=== PATIENT | female | born 1970 | race Hispanic/Latino ===

== ENCOUNTER 2018-03-09 16:11 | Emergency (ER) | payer SELFPAY ==
--- NOTE | 2018-03-09 17:00 | RAD REPORT ---
EXAM DESCRIPTION: Jeremy Pa And Lat (2 Views)03/09/2018 4:53 pm CLINICAL HISTORY: Cough;Congestion COMPARISON: None FINDINGS: The lungs appear clear of acute infiltrate. The heart is normal size The mediastinum is mildly prominent. IMPRESSION: Mild prominence of the mediastinum. This may be vascular, mediastinal fat or lymphadeno sarahi. A followup PA and lateral chest series in 6 weeks is recommended for re-evaluation
--- NOTE | 2018-03-09 17:39 | EDPHYS ---
Physician Documentation [facility] Name: Becky Hernández Age: 47 yrs Sex: Female : 1970 Arrival Date: 03/09/2018 Time: 16:14 Bed 27 Private MD: None, None ED Physician Angelo Kumar HPI: 03/09 17:09 This 47 yrs old Female presents to ER via Ambulatory with complaints of Fever, kb Congestion. 17:09 The patient or guardian reports cough, that is intermittent, described as moderate, kb with no sputum, flu symptoms, low-grade fever, myalgias. Associated signs and symptoms: Pertinent positives: fever, rhinorrhea, sore throat, Pertinent negatives: chest pain, diarrhea, ear ache, nausea, vomiting. The patient has not experienced similar symptoms in the past. The patient has not recently seen a physician. 17:10 Onset: The symptoms/episode began/occurred 3 day(s) ago. Severity of symptoms: At their kb worst the symptoms were moderate, in the emergency department the symptoms are unchanged. Modifying factors: The symptoms are alleviated by nothing, the symptoms are aggravated by nothing. 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 - Social history:: Smoking status: Patient/guardian denies using tobacco. - Ebola Screening: : Patient denies travel to an Ebola-affected area in the 21 days before illness onset. ROS: 17:10 Cardiovascular: Negative for chest pain, palpitations, and edema, Abdomen/GI: Negative kb for abdominal pain, nausea, vomiting, diarrhea, and constipation, Back: Negative for injury and pain, : Negative for injury, bleeding, discharge, and swelling, MS/Extremity: Negative for injury and deformity, Skin: Negative for injury, rash, and discoloration, Neuro: Negative for headache, weakness, numbness, tingling, and seizure. 17:10 Constitutional: Positive for body aches, chills, fatigue, fever, malaise, Negative for poor PO intake, weight loss. 17:10 ENT: Positive for rhinorrhea, sinus congestion, sore throat. 17:10 Respiratory: Positive for cough, Negative for dyspnea on exertion, hemoptysis, orthopnea, pleurisy, shortness of breath, sputum production, wheezing. Exam: 17:10 Constitutional: This is a well developed, well nourished patient who is awake, alert, kb and in no acute distress. Head/Face: Normocephalic, atraumatic. ENT: Nares patent. No nasal discharge, no septal abnormalities noted. Tympanic membranes are normal and external auditory canals are clear. Oropharynx with no redness, swelling, or masses, exudates, or evidence of obstruction, uvula midline. Mucous membranes moist. Neck: Trachea midline, no thyromegaly or masses palpated, and no cervical lymphadenopathy. Supple, full range of motion without nuchal rigidity, or vertebral point tenderness. No Meningismus. Chest/axilla: Normal chest wall appearance and motion. Nontender with no deformity. No lesions are appreciated. Cardiovascular: Regular rate and rhythm with a normal S1 and S2. No gallops, murmurs, or rubs. Normal PMI, no JVD. No pulse deficits. Respiratory: Lungs have equal breath sounds bilaterally, clear to auscultation and percussion. No rales, rhonchi or wheezes noted. No increased work of breathing, no retractions or nasal flaring. Abdomen/GI: Soft, non-tender, with normal bowel sounds. No distension or tympany. No guarding or rebound. No evidence of tenderness throughout. Skin: Warm, dry with normal turgor. Normal color with no rashes, no lesions, and no evidence of cellulitis. MS/ Extremity: Pulses equal, no cyanosis. Neurovascular intact. Full, normal range of motion. Neuro: Awake and alert, GCS 15, oriented to person, place, time, and situation. Cranial nerves II-XII grossly intact. Motor strength 5/5 in all extremities. Sensory grossly intact. Cerebellar exam normal. Normal gait. Vital Signs: 16:19 BP 134 / 87; Pulse 61; Resp 18; Temp 98.2; Pulse Ox 98% on R/A; Weight 91.63 kg (R); aj1 Height 5 ft. 2 in. (157.48 cm) (R); Pain 8/10; 17:53 BP 148 / 85; Pulse 59; Pulse Ox 99% on R/A; rv 16:19 Body Mass Index 36.95 (91.63 kg, 157.48 cm) aj1 MDM: 16:23 Patient medically screened. kb 17:21 Data reviewed: vital signs, nurses notes. Data interpreted: Pulse oximetry: on room air kb is 98 %. Interpretation: normal. 17:38 Counseling: I had a detailed discussion with the patient and/or guardian regarding: the kb historical points, exam findings, and any diagnostic results supporting the discharge/admit diagnosis, lab results, radiology results, the need for outpatient follow up, a family practitioner, to return to the emergency department if symptoms worsen or persist or if there are any questions or concerns that arise at home. 03/09 16:26 Order name: Strep; Complete Time: 17:22 kb 03/09 16:26 Order name: Flu; Complete Time: 17:22 kb 03/09 16:26 Order name: EKG; Complete Time: 16:27 kb 03/09 16:26 Order name: Chest Pa And Lat (2 Views) XRAY; Complete Time: 17:02 kb 03/09 17:15 Order name: Throat Culture EDMN 03/09 16:26 Order name: EKG - Nurse/Tech; Complete Time: 16:48 kb Administered Medications: 17:51 Drug: SOLU-Medrol 125 mg Route: IM; Site: right deltoid; rv 17:51 Follow up: Response: Medication administered at discharge. rv Disposition: 03/09/18 17:39 Discharged to Home. Impression: Acute upper respiratory infection, unspecified. - Condition is Stable. - Discharge Instructions: Upper Respiratory Infection, Adult, [id number]. - Medication Reconciliation Form, Thank You Letter, Antibiotic Education, Prescription Opioid Use, Work release form form. - Follow up: Emergency Department; When: As needed; Reason: Worsening of condition. Follow up: Private Physician; When: 2 - 3 days; Reason: Recheck today's complaints, Continuance of care, Re-evaluation by your physician. - Notes: Take an antihistamine with decongestant (zyrtec D, Mariam D or Claritin D), as well as, Flonase for symptoms. Both medications are over the counter Addendum: 03/13/2018 07:38 Co-signature as Attending Physician, Angelo Kumar MD I agree with the assessment and c elias plan of care. Signatures: Dispatcher [employer] EDAide Quinn, CLARISA-Malu MCKENNA-Vicky Loaiza, RN RN aj1 Angelo Kumar MD MD cha Vicente, Ronaldo, RN RN rv Corrections: (The following items were deleted from the chart) 03/09 17:52 17:39 03/09/2018 17:39 Discharged to Home. Impression: Acute upper respiratory rv infection, unspecified. Condition is Stable. Forms are Medication Reconciliation Form, Thank You Letter, Antibiotic Education, Prescription Opioid Use. Follow up: Emergency Department; When: As needed; Reason: Worsening of condition. Follow up: Private Physician; When: 2 - 3 days; Reason: Recheck today's complaints, Continuance of care, Re-evaluation by your physician. kb
--- NOTE | 2018-03-09 17:39 | ER ---
Nurse's Notes [facility] Name: Becky Hernández Age: 47 yrs Sex: Female : 1970 Arrival Date: 03/09/2018 Time: 16:14 Bed 27 Private MD: None, None Diagnosis: Acute upper respiratory infection, unspecified Presentation: 03/09 16:16 Presenting complaint: Patient states: She has been having cough, congestion, and chills aj1 since Monday she has been taking Mucinex and cough medication, but its not helping and now she has a headache, sore throat, and chest pain. Transition of care: patient was not received from another setting of care. Resp Distress? No respiratory distress is noted at this time. Onset of symptoms was March 07, 2018. Risk Assessment: Do you want to hurt yourself or someone else? Patient reports no desire to harm self or others. Initial Sepsis Screen: Does the patient meet any 2 criteria? No. Patient's initial sepsis screen is negative. Does the patient have a suspected source of infection? No. Patient's initial sepsis screen is negative. Care prior to arrival: None. 16:16 Method Of Arrival: Ambulatory aj1 16:16 Acuity: MARNI 4 aj1 Triage Assessment: 16:19 General: Appears in no apparent distress. uncomfortable, Behavior is calm, cooperative, aj1 appropriate for age. Pain: Complains of pain in forehead, mid back area and diaphragm Pain currently is 8 out of 10 on a pain scale. EENT: Reports nasal congestion nasal discharge. Neuro: Level of Consciousness is awake, alert, obeys commands. Cardiovascular: Patient's skin is warm and dry. Cardiovascular: Reports chest pain. Respiratory: Airway is patent Respiratory effort is even, unlabored, Respiratory pattern is regular, symmetrical. Respiratory: Reports cough that is. MATHEMATICIAN RESEARCH: 16:19 LMP N/A - Post-menopause aj1 Historical: - Allergies: 16:19 No Known Allergies; aj1 - Home Meds: 16:19 None [Active]; aj1 - PMHx: 16:19 None; aj1 - PSHx: 16:19 ; aj1 - Immunization history:: Flu vaccine is not up to date. - Social history:: Smoking status: Patient/guardian denies using tobacco. - Ebola Screening: : Patient denies travel to an Ebola-affected area in the 21 days before illness onset. Screenin:49 Abuse screen: Denies threats or abuse. Denies injuries from another. Nutritional rv screening: No deficits noted. Tuberculosis screening: No symptoms or risk factors identified. Fall Risk None identified. Assessment: 16:30 General: Appears in no apparent distress. comfortable, Behavior is calm, cooperative. rv 16:30 Pain: Complains of pain in chest. Neuro: Level of Consciousness is awake, alert, obeys rv commands, Oriented to person, place, time, situation. Cardiovascular: Capillary refill < 3 seconds. Respiratory: Airway is patent Breath sounds are clear bilaterally. GI: Abdomen is round. : No signs and/or symptoms were reported regarding the genitourinary system. EENT: No signs and/or symptoms were reported regarding the EENT system. Derm: Skin is intact. Vital Signs: 16:19 BP 134 / 87; Pulse 61; Resp 18; Temp 98.2; Pulse Ox 98% on R/A; Weight 91.63 kg (R); aj1 Height 5 ft. 2 in. (157.48 cm) (R); Pain 8/10; 17:53 BP 148 / 85; Pulse 59; Pulse Ox 99% on R/A; rv 16:19 Body Mass Index 36.95 (91.63 kg, 157.48 cm) aj1 ED Course: 16:14 Patient arrived in ED. mr 16:15 None, None is Private Physician. mr 16:18 Triage completed. aj1 16:19 Arm band placed on Patient placed in an exam room. aj1 16:23 Aide Lay [facility]-C [facility]. kb 16:23 Angelo Kumar MD is Attending Physician. kb 16:46 EKG done, by weatherization field technician. reviewed by Aide LEHMAN. dt2 16:48 Flu Sent. rv 16:48 Strep Sent. rv 16:48 Chest Pa And Lat (2 Views) XRAY Sent. rv 16:49 Patient has correct armband on for positive identification. Bed in low position. Call rv light in reach. Side rails up X 1. Pulse ox on. NIBP on. 16:52 X-ray completed. Patient tolerated procedure well. mh1 16:54 Chest Pa And Lat (2 Views) XRAY In Process Unspecified. EDMS 17:52 No provider procedures requiring assistance completed. Patient did not have IV access rv during this emergency room visit. Administered Medications: 17:51 Drug: SOLU-Medrol 125 mg Route: IM; Site: right deltoid; rv 17:51 Follow up: Response: Medication administered at discharge. rv Outcome: 17:39 Discharge ordered by MD. martinez 17:52 Discharged to home ambulatory. rv 17:52 Condition: good 17:52 Discharge instructions given to patient, Instructed on discharge instructions, follow up and referral plans. 17:52 Patient left the ED. rv Signatures: Dispatcher [employer] EDMI Aide Lay, SYSTEM SOFTWARE DEVELOPER-C SYSTEM SOFTWARE DEVELOPER-Vicky Loaiza, PAM RN Jagruti Curran mr Sridevi Hanna 1 Koki Szymanski 2 Georges Berrios RN RN rv
[2018-03-09] MEDS ORDERED: METHYLPREDNISOLONE 125 MG INJ ONE (17:50)
--- NOTE | 2018-03-10 06:06 | EKG ---
Test Date: 2018-03-09 Test Time: 16:42:15 Director Information Security: ALDO MEASUREMENT RESULTS: Intervals: Rate: 60 NC: 128 QRSD: 92 QT: 428 QTc: 428 [place]: P: 16 NC: 128 QRS: 36 T: 20 INTERPRETIVE STATEMENTS: Normal sinus rhythm with sinus arrhythmia Normal ECG No previous ECG available for comparison Electronically Signed On 03-10-18 06:06:02 CDT by Ludwin Jiang
== END 2018-03-09 17:52 | disposition home or self-care (01) ==
LOC: ER 16:11
DX: J06.9 Acute upper respiratory infection, unspecified (principal)
CPT/HCPCS: 71046; 87070; 87081; 87804; 93005; 96372; 99284; J2930